=== PATIENT | female | born 1975 | race Two or more races ===

== ENCOUNTER 2019-04-24 08:32 | Emergency (ER) | payer BC ==
[2019-04-24] MEDS ORDERED: Aspirin 81 MG Tab.Chew PO ONE (08:38)
[2019-04-24] MEDS ORDERED: Sodium Chloride 0.9% 1,000 ML IV ONE (08:38)
--- NOTE | 2019-04-24 08:39 | EDM.PDOC ---
ED HPI GENERAL MEDICAL PROBLEM - General Chief Complaint: Chest Pain Stated Complaint: PT SPOKE TO NURSE Time Seen by Provider: 04/24/19 08:39 Source of Information: Reports: Patient - History of Present Illness INITIAL COMMENTS - FREE TEXT/NARRATIVE: HISTORY AND PHYSICAL: History of present illness: [Patient developed epigastric pain after drinking coffee this morning, she generally does not drink coffee she has no fever nausea vomiting chills sweats no distress no association with shortness of breath or diaphoresis no radiation arm neck or jaw Old with treatment proton X GI cocktail ] Review of systems: As per history of present illness and below otherwise all systems reviewed and negative. Past medical history: As per history of present illness and as reviewed below otherwise noncontributory. Surgical history: As per history of present illness and as reviewed below otherwise noncontributory. Social history: No reported history of drug or alcohol abuse. Family history: As per history of present illness and as reviewed below otherwise noncontributory. Physical exam: HEENT: Atraumatic, normocephalic, pupils reactive, negative for conjunctival pallor or scleral icterus, mucous membranes moist, throat clear, neck supple, nontender, trachea midline. Lungs: Clear to auscultation, breath sounds equal bilaterally, chest nontender. Heart: S1S2, regular, negative for clicks, rubs, or JVD. Abdomen: Soft, nondistended, nontender. Negative for masses or hepatosplenomegaly. Negative for costovertebral tenderness. Pelvis: Stable nontender. Genitourinary: Deferred. Rectal: Deferred. Extremities: Atraumatic, negative for cords or calf pain. Neurovascular unremarkable. Neuro: Awake, alert, oriented. Cranial nerves II through XII unremarkable. Cerebellum unremarkable. Motor and sensory unremarkable throughout. Exam nonfocal. Diagnostics: [CBC CMP UA hCG troponin lipase ] Therapeutics: [Normal saline Aspirin 324 mg chewable-held Potassium 20 mEq by mouth now Proton X GI cocktail Zantac by mouth twice a day, avoid coffee or caffeine in general Potassium 20 mEq by mouth daily ER 5 days Impression: [GERD]-improved Hypokalemia Definitive disposition and diagnosis as appropriate pending reevaluation and review of above. Right Chest Pain Score (Numeric/FACES): 5 - Related Data Allergies Allergy/AdvReac Type Severity Reaction Status Date / Time No Known Allergies Allergy Verified 04/24/19 08:41 Home Meds: Home Meds . [No Known Home Meds] 04/24/19 [History] ED ROS GENERAL - Review of Systems Review Of Systems: See Below ED EXAM, GENERAL - Physical Exam Exam: See Below Course - Vital Signs Last Recorded V/S: Last Vital Signs Temp 96.9 F 04/24/19 08:41 Pulse 87 04/24/19 08:41 Resp 17 04/24/19 08:41 BP 147/86 H 04/24/19 08:41 Pulse Ox 98 04/24/19 08:41 - Orders/Labs/Meds Orders: Active Orders 24 hr Category Date Time Status EKG Documentation Completion [RC] STAT Care 04/24/19 08:50 Active Chest 1V Frontal [CR] Stat Exams 04/24/19 08:50 Taken HCG QUALITATIVE,URINE [URCHEM] Stat Lab 04/24/19 08:38 Ordered UA RFX CLARITA AND CULT IF INDIC [URIN] Stat Lab 04/24/19 08:38 Ordered Potassium Chloride [Klor-Con M20] Med 04/24/19 09:18 Once 20 meq PO ONETIME ONE Sodium Chloride 0.9% [Normal Saline] 1,000 ml Med 04/24/19 08:38 Active IV STAT Medication Orders Sodium Chloride (Normal Saline) 1,000 mls @ 999 mls/hr IV STAT ONE Stop: 04/24/19 09:38 Last Admin: 04/24/19 08:47 Dose: 999 mls/hr Potassium Chloride (Klor-Con M20) 20 meq PO ONETIME ONE Stop: 04/24/19 09:19 Labs: Laboratory Tests 04/24/19 04/24/19 Range/Units 08:39 08:39 WBC 6.51 (4.0-11.0) K/uL RBC 4.68 (4.30-5.90) M/uL Hgb 13.8 (12.0-16.0) g/dL Hct 41.5 (36.0-46.0) % MCV 88.7 (80.0-98.0) fL MCH 29.5 (27.0-32.0) pg MCHC 33.3 (31.0-37.0) g/dL RDW Std Deviation 46.4 (28.0-62.0) fl RDW Coeff of Rosalba 14 (11.0-15.0) % Plt Count 324 (150-400) K/uL MPV 9.90 (7.40-12.00) fL Neut % (Auto) 41.8 L (48.0-80.0) % Lymph % (Auto) 47.2 H (16.0-40.0) % [place] % (Auto) 8.9 (0.0-15.0) % Eos % (Auto) 1.5 (0.0-7.0) % Baso % (Auto) 0.6 (0.0-1.5) % Neut # (Auto) 2.7 (1.4-5.7) K/uL Lymph # (Auto) 3.1 H (0.6-2.4) K/uL [place] # (Auto) 0.6 (0.0-0.8) K/uL Eos # (Auto) 0.1 (0.0-0.7) K/uL Baso # (Auto) 0.0 (0.0-0.1) K/uL Nucleated RBC % 0.0 /100WBC Nucleated RBCs # 0 K/uL Sodium 138 (136-145) mmol/L Potassium 2.9 L (3.5-5.1) mmol/L Chloride 103 (98-107) mmol/L Carbon Dioxide 24.9 (21.0-32.0) mmol/L BUN 14 (7.0-18.0) mg/dL Creatinine 0.7 (0.6-1.0) mg/dL Est Cr Clr Drug Dosing 92.29 mL/min Estimated GFR (MDRD) > 60.0 ml/min Glucose 79 (74-106) mg/dL Calcium 8.1 L (8.5-10.1) mg/dL Total Bilirubin 0.4 (0.2-1.0) mg/dL AST 24 (15-37) IU/L ALT 24 (14-63) IU/L Alkaline Phosphatase 83 (46-116) U/L Troponin I < 0.050 (0.000-0.056) ng/mL Total Protein 7.9 (6.4-8.2) g/dL Albumin 3.8 (3.4-5.0) g/dL Globulin 4.1 H (2.6-4.0) g/dL Albumin/Globulin Ratio 0.9 (0.9-1.6) Lipase 199 (73-393) U/L Meds: Medications Generic Name Dose Route Start Last Admin Trade Name Aidan PRN Reason Stop Dose Admin Sodium Chloride 1,000 mls @ 999 mls/hr 04/24/19 08:38 04/24/19 08:47 Normal Saline IV 04/24/19 09:38 999 mls/hr STAT ONE Administration Potassium Chloride 20 meq 04/24/19 09:18 Klor-Con M20 PO 04/24/19 09:19 ONETIME ONE Discontinued Medications Generic Name Dose Route Start Last Admin Trade Name Freq PRN Reason Stop Dose Admin Aspirin 324 mg 04/24/19 08:38 04/24/19 08:48 Aspirin PO 04/24/19 08:39 Not Given ONETIME ONE Al Hydroxide/Mg Hydroxide 15 0 ml 04/24/19 08:46 04/24/19 09:02 ml/ Metoclopramide HCl 5 mg/ PO 04/24/19 08:47 1 each Lidocaine HCl 5 ml ONETIME ONE Administration Sodium Chloride Confirm 04/24/19 08:50 04/24/19 09:19 Normal Saline Administered 04/24/19 08:51 20 mls/hr Dose Administration 20 mls @ as directed .ROUTE .STK-MED ONE Pantoprazole Sodium 80 mg 04/24/19 08:47 04/24/19 09:03 Protonix Iv IVPUSH 04/24/19 08:48 80 mg .BOLUS ONE Administration Departure - Departure Time of Disposition: 09:21 Disposition: Home, Self-Care 01 Condition: Good Clinical Impression: Gastroesophageal reflux disease, Hypokalemia - Discharge Information Forms: ED Department Discharge Additional Instructions: Potassium replacement 5 days follow-up with primary care recheck potassium Zantac 150 mg by mouth twice a day when necessary Avoid triggers of acid reflux such as coffee spicy food aspirin ibuprofen Tylenol Call phone number below to schedule appropriate follow-up and recheck of lab [facility] [address] [place] [id number] The following information is given to patients seen in the emergency department who are being discharged to home. This information is to outline your options for follow-up care. We provide all patients seen in our emergency department with a follow-up referral. The need for follow-up, as well as the timing and circumstances, are variable depending upon the specifics of your emergency department visit. If you don't have a primary care physician on staff, we will provide you with a referral. We always advise you to contact your personal physician following an emergency department visit to inform them of the circumstance of the visit and for follow-up with them and/or the need for any referrals to a consulting specialist. The emergency department will also refer you to a specialist when appropriate. This referral assures that you have the opportunity for follow-up care with a specialist. All of these measure are taken in an effort to provide you with optimal care, which includes your follow-up. Under all circumstances we always encourage you to contact your private physician who remains a resource for coordinating your care. When calling for follow-up care, please make the office aware that this follow-up is from your recent emergency room visit. If for any reason you are refused follow-up, please contact the [facility] emergency department at and asked to speak to the emergency department charge nurse. - My Orders Last 24 Hours: My Active Orders 04/24/19 08:38 HCG QUALITATIVE,URINE [URCHEM] Stat UA RFX CLARITA AND CULT IF INDIC [URIN] Stat Sodium Chloride 0.9% [Normal Saline] 1,000 ml IV STAT 04/24/19 08:50 EKG Documentation Completion [RC] STAT Chest 1V Frontal [CR] Stat 04/24/19 09:18 Potassium Chloride [Klor-Con M20] 20 meq PO ONETIME ONE - Assessment/Plan Last 24 Hours: My Active Orders 04/24/19 08:38 HCG QUALITATIVE,URINE [URCHEM] Stat UA RFX CLARITA AND CULT IF INDIC [URIN] Stat Sodium Chloride 0.9% [Normal Saline] 1,000 ml IV STAT 04/24/19 08:50 EKG Documentation Completion [RC] STAT Chest 1V Frontal [CR] Stat 04/24/19 09:18 Potassium Chloride [Klor-Con M20] 20 meq PO ONETIME ONE
[2019-04-24] MEDS ORDERED: Alum Hydrox/Mag Hydrox/Simeth 15 ML, Metoclopramide 5 MG, Lidocaine 2% 5 ML PO ONE ×3 (08:46)
[2019-04-24] MEDS ORDERED: Pantoprazole 40 MG Vial IVPUSH ONE (08:47)
[2019-04-24] MEDS ORDERED: Sodium Chloride 0.9% 20 ML ONE (08:50)
[2019-04-24 09:09] LABS: BLOOD UREA NITROGEN,BUN 14 mg/dL (7.0-18.0); CARBON DIOXIDE,CO2 24.9 mmol/L (21.0-32.0); CHLORIDE,CL 103 mmol/L (98-107); GLUCOSE RANDOM 79 mg/dL (74-106); LIPASE 199 U/L (73-393); POTASSIUM,K 2.9 mmol/L (3.5-5.1); SODIUM,NA 138 mmol/L (136-145)
[2019-04-24] MEDS ORDERED: Potassium Chloride 20 MEQ Tab.ER PO ONE (09:18)
--- NOTE | 2019-04-24 09:51 | CR ---
INDICATION: Shortness of breath. Technique : AP portable chest x-ray FINDINGS: Mild scoliosis. Heart size within normal limits for AP technique. No focal infiltrate or consolidation in either lung. Remainder negative. Dictated by Rogelio De La Cruz MD @ Apr 24 2019 9:48AM Signed by Dr. Rogelio De La Cruz @ Apr 24 2019 9:49AM
== END 2019-04-24 09:51 | disposition home or self-care (01) ==
LOC: MW.ED 08:32
DX: K21.9 Gastro-esophageal reflux disease without esophagitis (principal); E87.6 Hypokalemia
CPT/HCPCS: 36415; 71045; 80053; 81003; 81025; 83690; 84484; 85025; 93005; 96361; 96374; 99285; A9270; C9113; J7040